=== PATIENT | male | born 1990 | race Caucasian/White ===

== ENCOUNTER 2016-12-25 08:10 | Emergency (ER) | payer OTHER, SELFPAY ==
[~2016-12-25] VITALS: Ht 182.9 cm; Wt 163.6 kg
[2016-12-25] MEDS ORDERED: DICYCLOMINE INJ 20MG/2ML (J0500) IM ONE (08:45)
[2016-12-25] MEDS ORDERED: KETOROLAC 30 MG/ML VIAL (J1885) IV ONE (08:45)
[2016-12-25] MEDS ORDERED: METOCLOPRAMIDE INJ 10MG/2ML VIAL (J2765) IV ONE (08:45)
[2016-12-25 09:00] LABS: BASO # 0.1 K/mm3 (0.0-0.2); BASO % 0.6 % (0.0-1.0); EOS # 0.1 K/mm3 (0.0-0.50); EOS % 1.1 % (0.0-3.0); LARGE UNSTAINED CELL # 0.1 K/mm3 (0.0-0.4); LARGE UNSTAINED CELL % 0.8 % (0.0-4.0); LYMPH # 0.5 K/mm3 (1.5-6.5); LYMPH % 3.8 % (24.0-44.0); MEAN CORPUSCULAR HEMOGLOBIN 33.7 pg (27.0-33.0); MEAN CORPUSCULAR HGB CONC 34.8 g/dl (32.0-36.5); MEAN CORPUSCULAR VOLUME 96.9 fl (80.0-96.0); MONO # 0.3 K/mm3 (0.0-0.8); MONO % 2.2 % (0.0-5.0); NEUTROPHILS # 10.8 K/mm3 (1.8-7.7); NEUTROPHILS % 91.5 % (36.0-66.0); PLATELET COUNT, AUTOMATED 272 k/mm3 (150-450); RED CELL DISTRIBUTION WIDTH 12.2 % (11.5-14.5); WHITE BLOOD COUNT 11.8 K/mm3 (4.0-10.0)
[2016-12-25] MEDS ORDERED: NS 1,000 ML IV ONE (09:15)
[2016-12-25 09:17] LABS: ALBUMIN 4.1 GM/DL (3.2-5.2); ALBUMIN/GLOBULIN RATIO 1.05 (1.00-1.93); ALKALINE PHOSPHATASE 58 U/L (45-117); ALT/SGPT 83 U/L (12-78); AMYLASE 20 U/L (25-115); ANION GAP 8 MEQ/L (8-16); AST/SGOT 41 U/L (15-37); BILIRUBIN,DIRECT 0.2 MG/DL (0.0-0.2); BILIRUBIN,TOTAL 0.8 MG/DL (0.2-1.0); BLOOD UREA NITROGEN 17 MG/DL (7-18); CALCIUM LEVEL 9.1 MG/DL (8.5-10.1); CARBON DIOXIDE LEVEL 27 MEQ/L (21-32); CHLORIDE LEVEL 104 MEQ/L (98-107); CREATININE FOR GFR 0.98 MG/DL (0.70-1.30); GLOMERULAR FILTRATION RATE > 60.0 (>60); GLUCOSE, FASTING 129 MG/DL (70-105); POTASSIUM SERUM 4.1 MEQ/L (3.5-5.1); SODIUM LEVEL 139 MEQ/L (136-145)
[2016-12-25] MEDS ORDERED: ISOVUE-370 76% 100ML VIAL (Q9967) As Ordered ONE (09:36)
[2016-12-25] MEDS ORDERED: ZOFR4TAB3 PO (10:25)
[2016-12-25 10:28] VITALS: BP 156/85
--- NOTE | 2016-12-25 10:47 | REP ---
CT ABDOMEN AND PELVIS WITH IV CONTRAST: TECHNIQUE: Axial contrast enhanced images from the lung bases to the pubic symphysis using 100 mL Isovue 370 intravenous contrast material with multiplanar reformations. Visualized lung bases are clear. The liver demonstrates diffuse fatty infiltration. No definite liver mass is seen. Spleen, adrenals, pancreas, and kidneys are normal in appearance. There is no hydronephrosis. There is abdominal aortic aneurysm. There is no adenopathy. There is no free air or free fluid. There is no bowel wall thickening. There is no evidence of appendicitis. There is no pelvic mass. Urinary bladder is not distended and not evaluated. IMPRESSION: Diffuse fatty infiltration of the liver. Otherwise negative CT abdomen and pelvis with contrast. Signed by Colton Hughes MD 12/25/2016 03:15 P
== END 2016-12-25 10:42 | disposition home or self-care (01) ==
LOC: M ED 08:54
DX: K76.0 Fatty (change of) liver, not elsewhere classified (principal); R11.2 Nausea with vomiting, unspecified; R10.10 Upper abdominal pain, unspecified; I10 Essential (primary) hypertension; F17.200 Nicotine dependence, unspecified, uncomplicated
CPT/HCPCS: 36415; 74177; 80048; 80076; 81001; 82150; 83690; 85025; 86140; 96372; 96374; 96375; 99283; J0500; J1885; J2765; Q9967

== ENCOUNTER 2017-03-18 21:21 | Emergency (ER) | payer OTHER, SELFPAY ==
[~2017-03-18] VITALS: Ht 182.9 cm; Wt 163.6 kg
[~2017-03-18 21:21] MED LIST: ZOFR4TAB3 PO
[2017-03-18 21:22] VITALS: BP_SYST 99
[2017-03-18] MEDS ORDERED: ALEV220C2 PO (21:55)
[2017-03-18] MEDS ORDERED: ROBA500T PO (23:15)
[2017-03-18] MEDS ORDERED: KETOROLAC 60 MG/2 ML VIAL (J1885) IM ONE (23:15)
[2017-03-18] MEDS ORDERED: AMOXICILLIN 500 MG CAP PO ONE (23:15)
[2017-03-18] MEDS ORDERED: METHOCARBAMOL 500 MG TAB PO ONE (23:15)
[2017-03-18] MEDS ORDERED: AMOX500C PO (23:15)
[2017-03-18] MEDS ORDERED: IBUP80TA PO (23:15)
== END 2017-03-19 00:07 | disposition home or self-care (01) ==
LOC: M ED 21:21
DX: S29.012A Strain of muscle and tendon of back wall of thorax, initial encounter (principal); X50.9XXA Other and unspecified overexertion or strenuous movements or postures, initial encounter; Y92.89 Other specified places as the place of occurrence of the external cause; Y93.89 Activity, other specified; Y99.8 Other external cause status; H66.90 Otitis media, unspecified, unspecified ear; I10 Essential (primary) hypertension; Z98.890 Other specified postprocedural states
CPT/HCPCS: 96372; 99282; J1885

== ENCOUNTER 2018-01-03 06:26 | Emergency (ER) | payer OTHER ==
[2018-01-03] MEDS: NORCO, ANEXSIA 5/325MG TABLET (HYDROcodone/ACETAMINOPHEN) PO (09:04)
[2018-01-03] MEDS: LIDOCAINE 1% MDV 20ML VIAL SC (09:04)
== END 2018-01-03 09:46 | disposition home or self-care (01) ==
LOC: M ED 06:26
DX: L05.01 Pilonidal cyst with abscess (principal); I10 Essential (primary) hypertension; K21.9 Gastro-esophageal reflux disease without esophagitis; Z79.899 Other long term (current) drug therapy; F17.210 Nicotine dependence, cigarettes, uncomplicated
CPT/HCPCS: 76857